=== PATIENT | male | born 1960 | race Two or more races ===

== ENCOUNTER 2022-08-17 20:41 | Inpatient (IN) | payer OTHER ==
[~2022-08-17] VITALS: Ht 172.7 cm; Wt 70.8 kg
--- NOTE | 2022-08-17 20:44 | NUR ---
BIB FAMILY FOR ALTERED MENTAL STATUS X "A COUPLE HOURS". PLACED IN BED, RESPONDING TO VERBAL STIMULI- CONFUSED.
--- NOTE | 2022-08-17 20:45 | NUR ---
IV FLY G18 INSERTED ON LEFT AC. BLOOD DRAWN AND SENT TO LAB.
--- NOTE | 2022-08-17 20:48 | NUR ---
EKG DONE AT BEDSIDE
--- NOTE | 2022-08-17 20:48 | NUR ---
BS 126
[2022-08-17 21:15] LABS: BASOPHILS % (AUTO) 0.5 % (0.0-2.0); EOSINOPHILS % (AUTO) 22.6 % (0.0-6.0); HEMATOCRIT 40 % (39-51); HEMOGLOBIN 12.8 g/dL (13.5-17.5); LYMPHOCYTES # (AUTO) 2.6 K/uL (0.8-4.8); LYMPHOCYTES % (AUTO) 36.9 % (20.0-44.0); MEAN CORPUSCULAR HGB CONC 32 g/dl (31.0-36.0); MEAN CORPUSCULAR VOLUME 87 fL (80-96); MONOCYTES # (AUTO) 0.7 K/uL (0.1-1.30); MONOCYTES % (AUTO) 10.4 % (2.0-12.0); NEUTROPHILS # (AUTO) 2.1 K/uL (1.8-8.9); NEUTROPHILS % (AUTO) 29.6 % (43.0-81.0); PLATELET COUNT (AUTO) 192 K/uL (150-450); RED BLOOD CELL COUNT(AUTO) 4.56 MIL/uL (4.5-6.0); WHITE BLOOD COUNT (AUTO) 7.2 K/uL (4.3-11.0)
--- NOTE | 2022-08-17 21:25 | NUR ---
PATIENT TAKEN TO CT VIA [facility]
[2022-08-17 21:34] LABS: SERUM AMMONIA 16 umol/L (11-32)
[2022-08-17 21:36] LABS: CALCIUM, SERUM 8.9 mg/dL (8.5-10.1); CARBON DIOXIDE 27 mmol/L (21-32); CHLORIDE 109 mmol/L (98-107); CREATININE 0.8 mg/dL (0.6-1.3); GLUCOSE 156 mg/dL (74-106); POTASSIUM 4.1 mmol/L (3.5-5.1); SODIUM SERUM 142 mmol/L (136-145); UREA NITROGEN, BLOOD 22 mg/dL (7-18)
[2022-08-17 21:41] LABS: EOSINOPHILS % (MANUAL) 24 % (0-4); LYMPHOCYTES % (MANUAL) 25 % (16-48); MONOCYTES % (MANUAL) 11 % (0-11.0); NEUTROPHILS % (MANUAL) 40 (42-76)
[2022-08-17 21:42] LABS: ALANINE AMINOTRANSFERASE 31 U/L (12-78); ALBUMIN 3.8 g/dL (3.4-5.0); ALKALINE PHOSPHATASE 93 U/L (46-116); ASPARTATE AMINOTRANSFERASE 20 U/L (15-37); BILIRUBIN,DIRECT 0.1 mg/dL (0.0-0.2); BILIRUBIN,TOTAL 0.6 mg/dL (0.2-1.0); TOTAL PROTEIN, SERUM 7.5 g/dL (6.4-8.2)
[2022-08-17 21:44] LABS: ALCOHOL, BLOOD < 3 mg/dL (0-10)
[2022-08-17 21:46] LABS: THYROID STIMULATING HORMONE 1.973 uIU/mL (0.358-3.74)
--- NOTE | 2022-08-17 22:02 | NUR ---
URINE SAMPLE SENT TO LAB
--- NOTE | 2022-08-17 22:46 | NUR ---
DR HERNANDEZ [facility]
--- NOTE | 2022-08-17 22:57 | NUR ---
TELE 116-1
--- NOTE | 2022-08-17 23:28 | NUR ---
REPORT GIVEN TO JAMAR ALMARAZ ROOM 116-1 FOR ANANDA
[2022-08-17] MEDS ORDERED: INSULIN REGULAR, HUMAN 100 UNIT/ML 3 ML VIAL SQ PRN (23:30)
[2022-08-17] MEDS ORDERED: hydrALAZINE HCL IV 20 MG VIAL IV PRN (23:30)
[2022-08-17] MEDS ORDERED: ENOXAPARIN SODIUM 40 MG/0.4 ML DISP.SYRIN SQ SCH (23:30)
[2022-08-17] MEDS ORDERED: LORAZEPAM INJ 2 MG/ML VIAL IV PRN (23:30)
[2022-08-17] MEDS ORDERED: DEXTROSE 50%-WATER 50 ML DISP.SYRIN IV PRN (23:30)
--- NOTE | 2022-08-17 23:50 | NUR ---
PT TRANSPORTED TO [facility] VIA ACLS PROTOCOL
[2022-08-18] VITALS: BP 161/85
[2022-08-18] MEDS ORDERED: IV NS 0.9% 1,000 ML BAG IV ONE
--- NOTE | 2022-08-18 | NUR ---
HOSPITAL INSURANCE REPRESENTATIVE NOTE RECEIVED AMHARIC SPEAKING PT 62 YEARS OLD MALE FROM ER WITH THE DX OF POSSIBLE NEW ONSET SEIZURE, POSSIBLE CVA, ACUTE ENCEPHALOPATHY. PT IS A/O X 1 AMHARIC SPEAKING, CONFUSED. UNSTEADY GATE. AT BED SIDE WHO TRANSLATED IN [place]. NO SOB, NO DISTRESS OR DISCOMFORT NOTED. DENIES PAIN. LAC #18 G SL INTACT AND PATENT. SKIN INTACT. ALL NEEDS ATTENDED. SEIZURE PRECAUTIONS TAKEN. SIDE RAILS UP X 3 AND CALL LIGHT WITHIN REACH. CONTINUE TO MONITOR HIM.
[2022-08-18] MEDS ORDERED: LEVETIRACETAM (500MG) 500 MG/5 ML VIAL IV ONE (00:50)
[2022-08-18] MEDS: LEVETIRACETAM (500MG) 1,000 MG in IV NS 0.9% 100 ML IV SCH ×2 (01:08→09:16)
--- NOTE | 2022-08-18 01:48 | NUR ---
RUFINA NOTES: PT C/O SEVERE ABDOMEN PAIN, PERCOCET 5/325 MG 2 TAB GIVEN AND PT TOLERATED WELL. WILL CONTINUE TO MONITOR Addendum: 08/18/22 at 0151 by WANDA STEWART RN WRONG PT
--- NOTE | 2022-08-18 01:52 | NUR ---
SHOE COBBLER NOTE UNABLE TO DO SWALLOW EVAL PT IS CONFUSED AND TOO SLEEPY. INFORMED NURSE TERRY TO FOLLOW UP IN AM. ALSO GIVEN REPORT TO HER.
--- NOTE | 2022-08-18 03:00 | NUR ---
PT AWAKE TRYING TO GET UP FROM BED, ORIENTED TO ROOM AND SITUATION, HE SEEMS FORGETFUL, UNABLE TO RECALL WHAT HAPPENED, WHY HE IS IN HOSPITAL, HE IS AWAKE ORIENTED TO SELF, TIME, AND , WHEN ASKED WHERE HE IS, HE STATED [facility], HE KEEP SAYING WHY I AM IN HOSPITAL, IS MY THAT WAS ADMITTED NOT ME, WHEN ORIENTED PT THAT HE IS AT [facility], HE WAS MORE CONFUSED ASKING WHY I AM HERE, EXPLAINED TO HIM THAT HE HAD AN EPISODE SEIZURE-LIKE/NOT EXACTLY WHAT IT IS, AND HE WILL BE EVALUATED BY NEUROLOGIST IN THE MORNING, HE STATED THAT HE WANTS TO GO HOME, ASKING FOR HIS CLOTHES AND CELL PHONE, HE WANTED TO CALL ALSO, EXPLAINED TO HIM THAT IS 0300 IN AM AND MOST PROBABLY BE SLEEPING THAT WE WILL TRY IN AM, HE INSISTED AND KEEP REPEATING THAT HE WANTS TO GO HOME, CALLED AND SHE ANSWERED CALL, SHE TALKED TO PATIENT AND EXPLAINED WHAT HAPPENED AND HE NEEDS TO STAY IN HOSPITAL, HE WILL BE EVALUATED AND THAT SHE WILL BE HERE IN AM, PT VERBALIZED UNDERSTANDING, PT PASSED SWALLOW EVAL ALSO AT THIS TIME.
--- NOTE | 2022-08-18 03:00 | NUR ---
ASSESSED PT AND NO S/S OF STROKE NOTED, NO FACIAL DROOPING, NO WEAKNESS NOTED AND ANY OF THE LIMBS OR DIDE OF THE BODY, NO ATAXIA, NO SLURRED SPEECH OR DYSARTHRIA NOTED, PASSED SWALLOW EVALUATION AT THIS TIME.
[2022-08-18 04:00] VITALS: BP 160/87
--- NOTE | 2022-08-18 06:46 | NUR ---
PROCESSING ANALYST CLOSING NOTE PT SLEEPING IN BED. BUT EASILY AROUSABLE, A/O X 3 WITH EPISODES OF FORGETFUL. TURKM[place] SPEAKING ONLY. BREATHING EVEN AND UNLABORED. IV ACCESS ON LAC #18 G INTACT AND PATENT. NO S/S OF INFILTRATIONS. NO C/O PAIN OR DISCOMFORT. NO ACUTE DISTRESS. ABLE TO USE THE URINAL. ALL SAFETY MEASURES IN PLACE. ON SEIZURE PRECAUTIONS. SWALLOW EVAL PASSED. SIDE RAILS UP X 2. BED IN LOWEST POSITION AND LOCKED.PLACE CALL LIGHT WITHIN REACH. WILL ENDORSE TO MORNING SHIFT NURSE.
--- NOTE | 2022-08-18 07:00 | NUR ---
RN OPENING NOTE PATIENT IS AWAKE, A/O X 3, [place] SPEAKING ONLY. BREATHING EVEN AND UNLABORED. IV ACCESS ON LAC #18 G INTACT AND PATENT. NO S/S OF INFILTRATIONS. NO C/O PAIN OR DISCOMFORT. NO ACUTE DISTRESS. ABLE TO USE THE URINAL. ALL SAFETY MEASURES IN PLACE. ON SEIZURE PRECAUTIONS. SIDE RAILS UP X 2. BED IN LOWEST POSITION AND LOCKED.PLACE CALL LIGHT WITHIN REACH. WILL CONTINUE TO MONITOR.
[2022-08-18 07:02] LABS: BASOPHILS % (AUTO) 0.6 % (0.0-2.0); HEMATOCRIT 37 % (39-51); HEMOGLOBIN 12.3 g/dL (13.5-17.5); LYMPHOCYTES # (AUTO) 2.4 K/uL (0.8-4.8); LYMPHOCYTES % (AUTO) 35.7 % (20.0-44.0); MEAN CORPUSCULAR HGB CONC 33 g/dl (31.0-36.0); MEAN CORPUSCULAR VOLUME 86 fL (80-96); MONOCYTES # (AUTO) 0.7 K/uL (0.1-1.30); NEUTROPHILS % (AUTO) 44.7 % (43.0-81.0); PLATELET COUNT (AUTO) 189 K/uL (150-450); RED BLOOD CELL COUNT(AUTO) 4.29 MIL/uL (4.5-6.0); WHITE BLOOD COUNT (AUTO) 6.8 K/uL (4.3-11.0)
[2022-08-18] MEDS ORDERED: PANTOPRAZOLE 40 MG TABLET.DR PO SCH (07:30)
[2022-08-18] MEDS: BLOOD SUGAR DIAGNOSTIC 1 EACH STRIP IN SCH ×4 (07:30→11:30)
--- NOTE | 2022-08-18 07:37 | NUR ---
ACCU-CHECK DONE, BS LEVEL BEFORE BREAKFAST 116. THE DUPLICATE ENTRY ON EMR FOR SECOND ACCU-CHECK, SCHEDULED ON THE SAME TIME, CLOSED.
[2022-08-18 08:00] VITALS: BP 139/88
[2022-08-18 08:21] LABS: CALCIUM, SERUM 8.7 mg/dL (8.5-10.1); CREATININE 0.6 mg/dL (0.6-1.3); MAGNESIUM 2.1 mg/dL (1.8-2.4); PHOSPHORUS 3.6 mg/dL (2.5-4.9); POTASSIUM 3.6 mmol/L (3.5-5.1)
[2022-08-18] MEDS ORDERED: ASPIRIN 81 MG TAB.CHEW PO SCH (09:00)
[2022-08-18 12:00] VITALS: BP 127/81
--- NOTE | 2022-08-18 12:35 | NUR ---
PATIENT DISCHARGED, EDUCATION AND D/C INSTRUCTION PROVIDED VERBALLY AND PRINTED. TAKEN HOME BY FAMILY, CONDITION STABLE, NO C/O AT THIS TIME.
[2022-08-18] MEDS ORDERED: SIMVASTATIN 40 MG TABLET PO SCH (22:00)
== END 2022-08-18 12:35 | disposition home or self-care (01) | DRG 816 ==
LOC: ER 20:43 → TELE1 23:32
PROVIDERS: ADMIT Nurse Practitioner Acute Care; ATTEND Nurse Practitioner Family
DX: T62.2X1A Toxic effect of other ingested (parts of) plant(s), accidental (unintentional), initial encounter (principal); G92.8 Other toxic encephalopathy; E11.9 Type 2 diabetes mellitus without complications; E66.9 Obesity, unspecified; E78.5 Hyperlipidemia, unspecified; I10 Essential (primary) hypertension; Z68.23 Body mass index [BMI] 23.0-23.9, adult; Y92.89 Other specified places as the place of occurrence of the external cause
CPT/HCPCS: 36415; 70450-TC; 71045-TC; 80048-TC; 80061-TC; 80076-TC; 82140-TC; 82962-TC; 83735-TC; 83880; 84100-TC; 84443-TC; 85025-TC; 85652-TC; 87081-TC; 92526; 92611-TC; 97112-TC; 97116-TC; 97530-TC; A4223; G0378; G0480; J1650; J1815; J1953; J7030

== ENCOUNTER 2024-12-31 09:32 | Emergency (ER) | payer OTHER ==
[~2024-12-31] VITALS: Ht 165.1 cm; Wt 72.6 kg
[2024-12-31] MEDS ORDERED: TRAM50TA2 PO (09:51)
[2024-12-31 10:12] VITALS: BP 140/64; TEMP 97.9; O2SAT 99
== END 2024-12-31 10:12 | disposition home or self-care (01) ==
LOC: ER 09:42
DX: M54.6 Pain in thoracic spine (principal); M54.50 Low back pain, unspecified; E11.9 Type 2 diabetes mellitus without complications